=== PATIENT | female | born 1985 | race Native Hawaiian/Other Pacific Islander ===

== ENCOUNTER 2017-04-13 08:01 | Day surgery (SDC) | payer OTHER ==
[~2017-04-13 08:01] MED LIST: ANCEF/STERILE WATER 2 GM/20 ML IV NR
[2017-04-13] MEDS ORDERED: DECADRON ONE ×2 (08:48→10:35)
[2017-04-13] MEDS ORDERED: MARCAINE-EPI/PF 0.5%-1:200,000 INFILTRATI ONE (08:48)
[2017-04-13] MEDS ORDERED: LACTATED RINGERS 1,000 ML IV SCH (09:00)
[2017-04-13] MEDS ORDERED: PEPCID PO NR (09:00)
[2017-04-13] MEDS ORDERED: VERSED IV NR (09:00)
[2017-04-13] MEDS ORDERED: SUBLIMAZE IV ONE (09:00)
[2017-04-13] MEDS ORDERED: BENADRYL ONE (09:36)
[2017-04-13] MEDS ORDERED: SUBLIMAZE ONE (09:47)
[2017-04-13] MEDS ORDERED: DIPRIVAN 10 MG/ML IV ONE (09:48)
[2017-04-13] MEDS ORDERED: XYLOCAINE MPF 2% ONE (09:50)
[2017-04-13] MEDS ORDERED: DILAUDID ONE (10:12)
[2017-04-13] MEDS ORDERED: ZOFRAN ONE (10:35)
[2017-04-13] MEDS ORDERED: NACL 0.9% IR ONE (10:42)
[2017-04-13] MEDS ORDERED: ADRENALIN IV ONE (10:42)
--- NOTE | 2017-04-13 11:33 | Short Stay Summary ---
Short Stay Documentation Date of service: 04/13/17 - History H&P: obtained from office - Allergies and Medications Current Medications: Allergies No Known Allergies Allergy (Verified 04/08/17 14:02) Home Medications Medication Instructions Recorded Confirmed Last Taken Type Butalb/Acetaminophen/Caffeine 30 mg PO 4XD 04/13/17 04/13/17 04/12/17 12:00 History [Owcdzc-Xkiakycp-Lavc 50-325-40] Active Medications Cefazolin Sodium (Ancef/Sterile Water 2 Gm/20 Ml) 2 gm IV PREOP NR Stop: 04/13/17 21:00 Famotidine (Pepcid) 20 mg PO PREOP NR Stop: 04/13/17 12:00 Last Admin: 04/13/17 09:03 Dose: 20 mg Lactated Ringer's (Lactated Ringers) 1,000 mls @ 75 mls/hr IV DIRECT STEPHANIE Last Admin: 04/13/17 09:02 Dose: 75 mls/hr Midazolam HCl (Versed) 2 mg IV PREOP NR Stop: 04/13/17 23:59 Last Admin: 04/13/17 09:17 Dose: 2 mg - Brief post op/procedure progress note Date of procedure: 04/13/17 Pre-op diagnosis: persistent right shoulder pain, AC joint arthritis, partial rotator cuff te Post-op diagnosis: other (persistent right shoulder pain, AC joint arthritis, degenerative wear anterior labrum, partial rotator cuff tear, extensive subacromial bursitis) Procedure: right shoulder arthroscopy subacromial decompression, distal clavicle excision, debriedment extensive subacromial bursitis, debriedment partial rotator cuff tear, Anesthesia: GETA Findings: as above Surgeon: YIN LIMON Other Sports Official: CHULA GOLDEN III Estimated blood loss: minimal Pathology: none Condition: stable - Hospital course Hospital course: no perioperative complications - Disposition Condition at discharge: Stable Disposition: DC-01 TO HOME OR SELFCARE Short Stay Discharge Plan Follow up with: CESAR SALAZAR MD [Primary Care Provider] - 7 Days
--- NOTE | 2017-04-13 13:12 | Post Anesthesia Evaluation ---
- Post Anesthesia Evaluation Patient Participated: Yes Airway Patent: Yes Stable Respiratory Function: Yes Nausea/Vomiting: No Temp > 96.8F: Yes Pain Manageable: Yes Adequeate Hydration: Yes Anesthesia Complications: No Patient on Ventilator: No
--- NOTE | 2017-04-13 13:12 | Anesthesia Consultation ---
Anesthesia Consult and Med Hx Date of service: 04/13/17 - Airway Anesthetic Teeth Evaluation: Good ROM Head & Neck: Adequate Mental/Hyoid Distance: Adequate Mallampati Class: Class II Intubation Access Assessment: Probably Good - Pulmonary Exam CTA: Yes - Cardiac Exam Cardiac Exam: RRR - Pre-Operative Health Status ASA Pre-Surgery Classification: ASA1, ASA2 Proposed Anesthetic Plan: General Nerve Block: IS - Pulmonary Hx Smoking: No Hx Sleep Apnea: Yes (DX SLEEP APNEA , NO CPAP USE) - Cardiovascular System Hx Hypertension: No - Other Systems Hx Cancer: No
--- NOTE | 2017-04-13 13:12 | Anesthesia Day of Surgery ---
Anesthesia Day of Surgery - Day of Surgery Patient Examined: Yes Patient is NPO: Yes
[2017-04-13] MEDS ORDERED: VERSED IV ONE (13:15)
--- NOTE | 2017-04-13 13:21 | Operative Report ---
PREOPERATIVE DIAGNOSES: Persistent right shoulder pain, acromioclavicular joint arthritis, possible SLAP tear to the right shoulder. POSTOPERATIVE DIAGNOSES: Persistent right shoulder pain, advanced acromioclavicular joint arthritic change with inferior spurs with a type 2 acromion causing severe impingement upon the rotator cuff, extensive subacromial bursitis, degenerative wear and tearing of the anterior and superior labrum, diffuse intraarticular synovitis, extensive subacromial bursitis, partial thickness. articular-sided rotator cuff tear encompassing approximately 15-20% of the width of the supraspinatus tendon. OPERATIVE PROCEDURES: Right shoulder arthroscopy, subacromial decompression, distal clavicle excision, debridement of degenerative tearing of the anterior and superior labrum, debridement of extensive subacromial bursitis, and debridement of partial thickness rotator cuff tear. SURGEON: Cruz Kenyon M.D. SUPERVISOR FILES: Iban Carty M.D. PREOPERATIVE ANTIBIOTICS: Ancef 2 g IV within 1 hour of skin incision. ANESTHESIA: General plus interscalene block to the operative right upper extremity. DVT PROPHYLAXIS: Open toe, thigh high compression stockings, and SCD pumps to bilateral lower extremities. OPERATIVE COMPLICATIONS: None. OPERATIVE HISTORY AND PHYSICAL: This is a 32-year-old female who has had persistent progressive worsening right shoulder pain with marked severe limitation of her normal activities of daily living, which has failed to improve despite extensive nonoperative treatment. MRI scan was performed, which was positive for advanced acromioclavicular joint arthritic change with inferior spurs causing severe impingement upon the rotator cuff, degenerative tearing of the anterior and superior labrum as well as partial thickness rotator cuff tear. The patient's MRI findings and diagnosis were discussed at length and after making sure the patient stood that diagnosis, all of her questions were answered. We then discussed treatment alternatives of surgical and nonsurgical including risks and benefits of both. After a long lengthy discussion, the patient opted to proceed with operative intervention. This will entail a right shoulder arthroscopy, subacromial decompression, distal clavicle excision, arthroscopic repair of the superior labrum anterior to posterior, possible rotator cuff repair and surgery as indicated. The risks of which were discussed to include, but not exclusive of infection, blood loss, nerve damage, loss of range of motion, and persistent pain. Again, the patient understood. All of her questions were answered and she wished to proceed with operative intervention. DESCRIPTION OF PROCEDURE: The patient was seen in the preoperative holding area at which point informed consent was reviewed and the appropriate right upper extremity was identified and then marked. The patient was then given interscalene block to the right upper extremity. After confirmation of adequate analgesia of the right upper extremity, the patient was then brought back to the operating room and placed supine on the standard operating room table at which point general anesthesia was administered and an endotracheal tube was inserted. After confirmation of adequate general anesthesia and appropriate placement of endotracheal tube, we then made sure that all bony prominences were well padded. There were no wrinkles in the compression stockings on bilateral lower extremities and SCD pumps were applied to bilateral lower extremities. The patient was then sat in a beachchair position using the beachchair positioner, which was already in place. The head was secured in a nice neutral position. The well left arm was secured in neutral position at the patient's side with the aid of well arm mcrae. A pillow was placed beneath the posterior aspect of bilateral lower extremities and placed in slight flexion at the hips and knees making sure the popliteal fossa was free and clear. The right upper extremity was then examined under anesthesia. The patient was seen to have full range of motion and there was no evidence for instability. Following the examination under anesthesia, the right upper extremity was then prepped and draped in the usual sterile fashion. After prepping and draping, a time-out was called and appropriate right upper extremity was identified which again had been marked appropriately. We began our procedure by first making our standard posterior portal with #15 blade. Once the portals were established, the cannula with a blunt trocar was inserted into the intra-articular aspect of the glenohumeral joint. This went without difficulty or damage to articular cartilage. Once in place, arthroscopic camera was immediately placed in the anterior aspect of the shoulder, established an anterior portal by first inserting an 18 gauge spinal needle between the subscap and biceps tendons under direct arthroscopic visualization. Once confirmed to be in appropriate position, a 15 blade was then used to establish an anterior portal. Once the portal was established, a blunt trocar was inserted to widen the portal site followed by arthroscopic probe. We began our diagnostic arthroscopy at the anterior aspect of the shoulder joint where the patient was seen to have a normal subscapularis tendon and normal middle glenohumeral ligament. There was degenerative tearing of the anterior and superior labrum. This was debrided using a 4-point meniscal shaver down to a nice, smooth, stable, healthy remaining tissue, which seemed to be stable when probed. The posterior labrum was seen to be intact and stable when probed. There was normal articular cartilage of the glenohumeral joint. There was a normal bare area. There was no Hill-Sachs lesion. There were no loose bodies in the axillary recess. Inspection of the rotator cuff showed there to be partial thickness tearing of the supraspinatus tendon encompassing approximately 20% width of the tendon. This was gently debrided using a 4.0 meniscal shaver down to nice smooth, stable, healthy remaining tissue. Inspection of the biceps tendon showed to be intact. Next, the shoulder was in its normal relation. There was severe extensive synovitis located diffusely throughout the intraarticular aspect of the glenohumeral joint. The arthroscopic pump was turned off to make sure there was good hemostasis. Once this was confirmed, the extraneous fluid was suctioned from the glenohumeral joint using arthroscopic cannula. Following this, all the arthroscopic instrumentation was removed from the glenohumeral joint then placed in the subacromial space. Once in the subacromial space, we saw there was severe extensive subacromial bursitis. A third incision was made in the lateral aspect of the shoulder in line with the distal clavicle away from the axillary nerve. We debrided the extensive subacromial bursitis using 4.0 meniscal shaver. Hemostasis was achieved with the Arthrocare ablation wand. Once completed, the arm was placed through full range of motion. We saw there was severe impingement of the rotator cuff upon the undersurface of the acromion and the distal clavicle. We then performed a subacromial decompression in standard fashion by first removing the soft tissue from the undersurface of the acromion using Arthrocare ablation wand. Then using the 4.0 hooded barrel bur, we carried out our subacromial decompression in standard fashion from the inferior and superior to posterior and anterior making sure not to leave any residual anterior hook. We turned our attention to the distal clavicle which was also seen to be arthritic and using the 4.0 hooded barrel bur, we carried our distal clavicle excision to a depth of approximately 6-8 mm and once completed, the arm was again placed through a full range of motion. We felt there was no impingement from the rotator cuff with the undersurface of the acromion with distal clavicle. Following this, we inspected the bursal side of the rotator cuff which was seen to be intact and stable when probed. The arthroscopic pump was again turned off making sure there was good hemostasis. Once this was confirmed, the extraneous fluid was suctioned from the subacromial space using arthroscopic cannula. Following this, all arthroscopic instrumentation was removed. The 3 portal sites were closed with 3-0 nylon in simple fashion, Adaptic, 4 x 4, ABD. A small abduction sling was applied. The patient sat down from the beachchair in a supine position, awakened from general anesthesia without complications, and taken to recovery room in stable condition. Standard postop orders were written. all Endoscopic instrumentation was removed. The 3 portal sites were closed with 3-0 nylon in a simple fashion. Adaptic, 4 x 4, ABD, paper tape, small abduction sling was applied. The patient was then sat down from the beachchair to supine position and was awakened from general anesthesia without complications and taken to recovery room in stable condition. Standard postoperative orders were written. JOB# [id number] KELVIN/FROYLAN
[2017-04-13 17:13] VITALS: BP 130/73
== END 2017-04-13 14:10 | disposition home or self-care (01) ==
LOC: OR 08:01
PROVIDERS: ATTEND Orthopaedic Surgery
DX: S46.011A Strain of muscle(s) and tendon(s) of the rotator cuff of right shoulder, initial encounter (principal); M25.511 Pain in right shoulder; M19.011 Primary osteoarthritis, right shoulder; X58.XXXA Exposure to other specified factors, initial encounter; Y93.89 Activity, other specified; Y92.89 Other specified places as the place of occurrence of the external cause; Y99.8 Other external cause status; M25.811 Other specified joint disorders, right shoulder; M75.51 Bursitis of right shoulder; M65.811 Other synovitis and tenosynovitis, right shoulder; M94.8X1 Other specified disorders of cartilage, shoulder
CPT/HCPCS: 29823; 29824; 29826; 81025; A4217; J0171; J0690; J1100; J1170; J1200; J2250; J2405; J2704; J3010; J7120; L1830